=== PATIENT | male | born 1940 | race Caucasian/White ===

== ENCOUNTER → 2016-08-06 | Outpatient (CLI) | payer MEDICARE, OTHER ==
[~2016-08-06] MED LIST: ASPIRIN PO; COREG PO; LORTAB 7.5-5001 TAB PO; ZOCOR PO
--- NOTE | ~2016-08-06 | CR63 ---
[facility] A Service of [facility] RADIOLOGY TEXT RESULTS PATIENT: SIDDHARTHA CRUZ LOCATION: [facility] : 44 UNIT #: [id number] AGE: [address]: Delfino Gonzalez MD SEX: M ORDER DR: [id number] [facility] [address] [place], [place] [address] [id number] MR#: [id number] Acc #: [id number] NAME: SIDDHARTHA CRUZ : 1940 SEX: M STUDY DATE/TIME: 08/06/2016 12:19 UNIT: [facility] ROOM: STUDY DESCRIPTION: CR Chest 2 View Attending Physician: Delfino Gonzalez M.D. Referring Physician: Delfino Gonzalez M.D. Ordering Physician: Delfino Gonzalez M.D. Primary Care Physician: Melina Vargas M.D. MEDICAL IMAGING REPORT This report is preliminary unless electronic signature is present EXAM PA and lateral chest radiograph 08/06/2016 COMPARISON 02/23/2015. HISTORY Shortness of breath and cough for 2 months. FINDINGS PA and lateral views of the chest are obtained and compared directly to the patient's prior study. Lungs are hyperinflated but clear. Heart size is normal. There is atherosclerotic calcification of the aorta. CONCLUSION Pulmonary hyperinflation suggesting chronic underlying lung disease. The chest is otherwise clear. Dictated by... Campbell Gallagher M.D. THIS IS AN ELECTRONICALLY VERIFIED REPORT Campbell Gallagher M.D. at 08/09/2016 7:10 AM FLETCHER/vincent TD: 08/07/2016 08:05 JOB #: [id number] MEDICAL IMAGING REPORT Page 1 of 1 COPY
== END | disposition home or self-care (01) ==
LOC: CRAD 12:07
DX: R06.02 Shortness of breath (principal); R05 Cough; J98.4 Other disorders of lung
CPT/HCPCS: 71020